=== PATIENT | female | born 1950 | race Caucasian/White ===

== ENCOUNTER 2023-01-20 06:26 | Inpatient (IN) | payer MEDICARE, OTHER ==
[2023-01-18 12:21] LABS: Basophils # (auto) 0 10 ^3/uL (0-0.2); Basophils % (auto) 0.6 % (0.0-2.0); Eosinophils # (auto) 0.2 10 ^3/uL (0-0.8); Eosinophils % (auto) 3.5 % (0.0-7.0); Hemoglobin 13.4 g/dL (12.2-16.2); Lymphocytes # (auto) 1.6 10 ^3/uL (0.4-5.4); Lymphocytes % (auto) 30.8 % (10.0-50.0); Mean Corpuscular Hemoglobin 30.3 pg (28.0-32.0); Mean Corpuscular Hgb Conc. 34.3 g/dL (32.0-36.0); Mean Corpuscular Volume 88.3 fL (80.0-100.0); Monocytes # (auto) 0.5 10 ^3/uL (0-1.3); Monocytes % (auto) 9.1 % (0.0-12.0); Neutrophils # (auto) 2.8 10 ^3/uL (1.6-8.6); Red Blood Cells 4.42 10^6/uL (4.0-5.20); Red Cell Distribution Width 13.6 % (11.8-14.3); White Blood Cell 5.1 10^3/uL (4.4-10.8)
[2023-01-18 12:44] LABS: INR 0.96 (0.9-1.15); Partial Thromboplastin Time 29.6 sec (24.6-33.4)
[2023-01-18 12:46] LABS: Urine Bacteria FEW /hpf (None Seen); Urine Blood Negative /uL (Negative); Urine WBC 2 /hpf (0 - 5)
[2023-01-18 12:48] LABS: Albumin 3.9 g/dL (3.4-5.0); Calcium 10.4 mg/dL (8.5-10.1); Potassium 4.6 mmol/L (3.5-5.1)
[2023-01-18 12:51] LABS: Bilirubin, Total 0.4 mg/dL (0.2-1.0); Total Protein 7.2 g/dL (6.4-8.2)
[~2023-01-20] VITALS: Ht 157.5 cm; Wt 95.4 kg
[~2023-01-20 06:26] MED LIST: ALPR1TAB2 PO; AMIT1TAB34 PO; ASPI1TAB20 PO; CYAN250L PO; HYDR1TAB97 PO; LEVO88CA3 PO; [UNRECOGNIZED DRUG - CODE] OR
[2023-01-20] MEDS ORDERED: ceFAZolin 1GM/50ML 100 ML IV ONE (06:39)
[2023-01-20] MEDS ORDERED: MIDAZOLAM HCL 2MG/2ML 2ml VIAL (1mg/ml) ONE (06:58)
[2023-01-20] MEDS ORDERED: fentaNYL CITRATE 100 MCG/2 ML VL ONE (06:58)
[2023-01-20] MEDS ORDERED: MEPERIDINE HCL (50 MG/ML) 1 ML VIAL ONE (06:58)
[2023-01-20] MEDS ORDERED: DexAMETHasone SOD PHOS 10MG/1ML VIAL INJ ONE (06:59)
[2023-01-20] MEDS ORDERED: ONDANSETRON HCL 4 MG/2 ML VIAL ONE (06:59)
[2023-01-20] MEDS ORDERED: SODIUM CHLORIDE LOCK 10 ML ONE (06:59)
[2023-01-20] MEDS ORDERED: PROPOFOL 10 MG/ML 20 ML IV ONE (06:59)
[2023-01-20] MEDS ORDERED: NEOSTIGMINE 1 MG/ML INJ (10mg/10ML VIAL) ONE (06:59)
[2023-01-20] MEDS ORDERED: LIDOCAINE W/ EPINEPHRINE 2% INJ 20ML VIAL ONE (07:00)
[2023-01-20] MEDS ORDERED: SUCCINYLCHOLINE CHLORIDE 20 MG/ML 10ML VIAL IV ONE (07:00)
[2023-01-20] MEDS ORDERED: ROCURONIUM 10MG/ML 10ML VIAL IV ONE (07:00)
[2023-01-20] MEDS ORDERED: MORPHINE SULFATE INJ 2 MG/ml SYRG IV PRN (07:15)
[2023-01-20] MEDS ORDERED: ONDANSETRON HCL 4 MG/2 ML VIAL IV PRN (07:15)
[2023-01-20] MEDS ORDERED: HYDROmorphone HCL 2 MG/ML VL/or syr IV PRN ×2 (07:15)
[2023-01-20] MEDS ORDERED: DOXAPRAM HCL 20 MG/ML 20ML VIAL INJ IV ONE (07:27)
[2023-01-20] MEDS ORDERED: POVIDONE IODINE 10 % TOPICAL OINT 30GM TOP ONE (08:23)
[2023-01-20] MEDS ORDERED: MORPHINE SULFATE INJ 2 MG/ml SYRG IV ONE ×2 (09:00→09:31)
[2023-01-20] MEDS: ALPRAZolam 0.5 MG TAB PO SCH ×2 (10:39→21:32)
[2023-01-20] MEDS: D5W/SOD CHL 0.45%/KCL 20MEQ 1,000 ML IV SCH ×2 (15:12→18:45)
[2023-01-20 15:18] VITALS: BP 133/61
[2023-01-20 15:21] VITALS: BP 115/61
[2023-01-20] MEDS: ceFAZolin 2 GM in D5W 5% 100 ML IV SCH ×2 (18:31→21:33)
[2023-01-20 22:00] VITALS: BP 140/70
[2023-01-21] MEDS: HYDROmorphone HCL 2 MG/ML VL/or syr IV PRN ×2 (00:08→10:07)
[2023-01-21] MEDS: D5W/SOD CHL 0.45%/KCL 20MEQ 1,000 ML IV SCH ×3 (01:46→13:11)
[2023-01-21 05:00] VITALS: BP 110/58
[2023-01-21] MEDS: ALPRAZolam 0.5 MG TAB PO SCH (06:43)
[2023-01-21 08:00] VITALS: BP 120/57
[2023-01-21 08:20] VITALS: BP 120/57
[2023-01-21] MEDS ORDERED: LEVOTHYROXINE SODIUM 88 MCG TAB PO ONE (12:00)
[2023-01-21] MEDS ORDERED: ACETAMINOPHEN 325 MG TAB PO PRN (12:15)
[2023-01-21 13:00] VITALS: BP 115/55
[2023-01-21] MEDS: ceFAZolin 2 GM in D5W 5% 100 ML IV SCH ×2 (14:00→21:32)
[2023-01-21 16:43] VITALS: BP 126/59
[2023-01-21] MEDS: ALPRAZolam 0.5 MG TAB PO PRN (21:32)
[2023-01-21] MEDS: HYDROcodone-ACET 5/325MG TAB PO PRN (21:32)
[2023-01-21 22:00] VITALS: BP 139/71
[2023-01-22] MEDS: D5W/SOD CHL 0.45%/KCL 20MEQ 1,000 ML IV SCH ×2 (01:20→14:37)
[2023-01-22 05:00] VITALS: BP 139/74
[2023-01-22] MEDS: ceFAZolin 2 GM in D5W 5% 100 ML IV SCH ×2 (06:26→14:00)
[2023-01-22] MEDS: HYDROcodone-ACET 5/325MG TAB PO PRN (06:28)
[2023-01-22] MEDS: ALPRAZolam 0.5 MG TAB PO PRN (06:31)
[2023-01-22 06:51] LABS: BUN/Creatinine Ratio 17.2; Calcium 9.7 mg/dL (8.5-10.1); Potassium 3.9 mmol/L (3.5-5.1)
[2023-01-22 06:59] LABS: Basophils # (auto) 0 10 ^3/uL (0-0.2); Basophils % (auto) 0.5 % (0.0-2.0); Eosinophils # (auto) 0.1 10 ^3/uL (0-0.8); Eosinophils % (auto) 1.2 % (0.0-7.0); Hematocrit 35.8 % (36.0-46.0); Hemoglobin 12.4 g/dL (12.2-16.2); Lymphocytes # (auto) 1.9 10 ^3/uL (0.4-5.4); Lymphocytes % (auto) 26.1 % (10.0-50.0); Mean Corpuscular Hemoglobin 30.5 pg (28.0-32.0); Mean Corpuscular Hgb Conc. 34.7 g/dL (32.0-36.0); Mean Corpuscular Volume 87.9 fL (80.0-100.0); Monocytes # (auto) 0.6 10 ^3/uL (0-1.3); Monocytes % (auto) 8.5 % (0.0-12.0); Neutrophils # (auto) 4.5 10 ^3/uL (1.6-8.6); Neutrophils % (auto) 63.7 % (37.0-80.0); Red Blood Cells 4.07 10^6/uL (4.0-5.20); Red Cell Distribution Width 13.6 % (11.8-14.3); White Blood Cell 7.1 10^3/uL (4.4-10.8)
[2023-01-22] MEDS ORDERED: LEVOTHYROXINE SODIUM 88 MCG TAB PO SCH (07:00)
[2023-01-22 08:00] VITALS: BP 131/71
[2023-01-22 08:55] VITALS: BP 131/71
[2023-01-22 12:44] VITALS: BP 119/65
[2023-01-22] MEDS ORDERED: diphenhdrAMINE HCL 25 MG CAP PO ONE (13:15)
[2023-01-22] MEDS ORDERED: CEPH-510 PO (16:07)
[2023-01-22] MEDS ORDERED: HYDR-4902 PO (16:07)
[2023-01-22 16:16] VITALS: BP 119/65
[2023-01-22 17:01] VITALS: BP 146/72
== END 2023-01-22 17:32 | disposition home or self-care (01) | DRG 355 ==
LOC: SUR 06:26 → OVERFLOW 10:47 → TELE-E-ADS 15:06 → WEST WING 18:14
PROVIDERS: ADMIT Surgery; ATTEND Internal Medicine
PROC: 0WQF0ZZ Repair Abdominal Wall, Open Approach (ICD-10-PCS; principal; 2023-01-20 07:38)
DX: K43.2 Incisional hernia without obstruction or gangrene (principal); E66.01 Morbid (severe) obesity due to excess calories; E03.9 Hypothyroidism, unspecified; F41.9 Anxiety disorder, unspecified; Z20.822 Contact with and (suspected) exposure to COVID-19; Z88.8 Allergy status to other drugs, medicaments and biological substances; Z91.012 Allergy to eggs; Z68.38 Body mass index [BMI] 38.0-38.9, adult
CPT/HCPCS: 36415; 80048; 80053; 81001; 84443; 85025; 85610; 85730; 86850; 86900; 86901; 88302; C1781; G0378; J0330; J0690; J1100; J2250; J2405; J2704; J7060

== ENCOUNTER → 2025-02-27 | Outpatient (CLI) | payer MEDICARE, BC ==
[~2025-02-27] MED LIST changes: +AMIT10TA12 PO; -AMIT1TAB34 PO; +CEPH-510 PO; +HYDR-4902 PO; -HYDR1TAB97 PO
[2025-02-27 12:41] LABS: Alanine Aminotransferase 29 U/L (7-40); Alkaline Phosphatase 76 U/L (46-116); Anion Gap 5 (5-15); BUN/Creatinine Ratio 15.4 (10.0-20.0); Blood Urea Nitrogen 14 mg/dL (9-23); Chloride 104 mmol/L (98-107); Glucose 100 mg/dL (74-106); Potassium 4.9 mmol/L (3.5-5.1); Sodium 141 mmol/L (136-145)
[2025-02-27 12:42] LABS: Total Protein 7.2 g/dL (5.7-8.2)
[2025-02-27 12:43] LABS: Albumin 4.6 g/dL (3.2-4.8); Aspartate Aminotransferase 23 U/L (13-40)
[2025-02-27 12:44] LABS: Bilirubin, Total 0.5 mg/dL (0.2-1.0)
[2025-02-27 12:58] LABS: Calcium 11.1 mg/dL (8.7-10.4); Carbon Dioxide 32 mmol/L (20-31)
== END | disposition home or self-care (01) ==
LOC: LAB 11:54
PROVIDERS: ATTEND Surgery
DX: K43.9 Ventral hernia without obstruction or gangrene (principal)
CPT/HCPCS: 36415; 80053

== ENCOUNTER 2025-05-07 06:15 | Inpatient (IN) | payer MEDICARE, BC ==
[2025-05-04 09:55] LABS: Urine Bacteria None Seen /hpf (None Seen)
[2025-05-04 10:00] LABS: Basophils # (auto) 0 10 ^3/uL (0-0.2); Basophils % (auto) 0.7 % (0.0-2.0); Eosinophils # (auto) 0.2 10 ^3/uL (0-0.8); Eosinophils % (auto) 3.2 % (0.0-7.0); Hematocrit 39.3 % (36.0-46.0); Hemoglobin 13.4 g/dL (12.2-16.2); Lymphocytes # (auto) 1.7 10 ^3/uL (0.4-5.4); Lymphocytes % (auto) 35.2 % (10.0-50.0); Mean Corpuscular Hgb Conc. 34.1 g/dL (32.0-36.0); Mean Corpuscular Volume 87.9 fL (80.0-100.0); Monocytes # (auto) 0.5 10 ^3/uL (0-1.3); Monocytes % (auto) 11.2 % (0.0-12.0); Neutrophils # (auto) 2.4 10 ^3/uL (1.6-8.6); Neutrophils % (auto) 49.7 % (37.0-80.0); Platelet Count (auto) 181 10^3/uL (140-450); Red Blood Cells 4.47 10^6/uL (4.0-5.20); Red Cell Distribution Width 13.5 % (11.8-14.3); White Blood Cell 4.8 10^3/uL (4.4-10.8)
[2025-05-04 10:22] LABS: Partial Thromboplastin Time 28.8 SEC (24.5-34.5); Prothrombin Time 10.6 sec (9.3-11.8)
[2025-05-04 11:24] LABS: Alanine Aminotransferase 24 U/L (7-40); Albumin 4.4 g/dL (3.2-4.8); Alkaline Phosphatase 79 U/L (46-116); Anion Gap 6 (5-15); Aspartate Aminotransferase 27 U/L (13-40); Blood Urea Nitrogen 20 mg/dL (9-23); Chloride 105 mmol/L (98-107); Potassium 4.6 mmol/L (3.5-5.1); Sodium 142 mmol/L (136-145)
[2025-05-04 11:25] LABS: Bilirubin, Total 0.4 mg/dL (0.2-1.0); Calcium 10.6 mg/dL (8.7-10.4); Carbon Dioxide 31 mmol/L (20-31); Glucose 71 mg/dL (74-106)
[2025-05-04 12:27] LABS: Urine Blood 1+ /uL (Negative); Urine Clarity Clear (Clear); Urine Color Yellow (Yellow); Urine Mucus FEW (None Seen); Urine Protein, UAD Negative (Negative); Urine Specific Gravity 1.026 (1.001-1.035); Urine Squamous Epithelial Cell FEW /hpf (<5); Urine Urobilinogen Normal (Negative); Urine WBC 3 /HPF (0-5); Urine pH 5.5 (5.0-9.0)
[~2025-05-07] VITALS: Ht 157.5 cm; Wt 81.1 kg
[~2025-05-07 06:15] MED LIST changes: +AMIT-400 PO; -AMIT10TA12 PO; -CEPH-510 PO; -CYAN250L PO; +HYDR-4798 PO; -HYDR-4902 PO; +LEVO125C3 PO; -LEVO88CA3 PO; -[UNRECOGNIZED DRUG - CODE] OR
[2025-05-07] MEDS: SUCCINYLCHOLINE CHLORIDE 20 MG/ML 10ML VIAL IV ONE (06:50)
[2025-05-07] MEDS ORDERED: fentaNYL CITRATE 100 MCG/2 ML VL ONE (06:53)
[2025-05-07] MEDS: ceFAZolin 2 GM/D5W50ml 50 ML IV ONE (07:04)
[2025-05-07] MEDS ORDERED: PHENYLEPHRINE HCL 10 MG/ML VL ONE (07:04)
[2025-05-07] MEDS ORDERED: PROPOFOL 10 MG/ML 20 ML IV ONE (07:05)
[2025-05-07] MEDS ORDERED: ROCURONIUM 10MG/ML 10ML VIAL IV ONE (07:41)
[2025-05-07] MEDS ORDERED: DexAMETHasone SOD PHOS 10MG/1ML VIAL INJ ONE (07:42)
[2025-05-07] MEDS ORDERED: ONDANSETRON HCL 4 MG/2 ML VIAL ONE (07:42)
[2025-05-07] MEDS ORDERED: HYDROmorphone HCL 2 MG/ML VL/or syr ONE (07:44)
[2025-05-07] MEDS ORDERED: ePHEDrine SULFATE 50 MG/ML AMP ONE (07:47)
[2025-05-07] MEDS: BUPIVACAINE 0.5% P/F INJ 10 ML VIAL ONE (08:15)
[2025-05-07] MEDS: LIDOCAINE W/ EPINEPHRINE 1% 20ML VIAL ONE (08:15)
[2025-05-07] MEDS: ceFAZolin 1GM VL ONE (08:16)
[2025-05-07] MEDS ORDERED: SUGAMMADEX 200mg/2ml Vial (100MG/ML) IV ONE (08:20)
[2025-05-07] MEDS: D5W/SOD CHL 0.45%/KCL 20MEQ 1,000 ML IV SCH (08:45)
[2025-05-07 08:47] VITALS: PULSE 98; RESP 16; O2SAT 93
[2025-05-07] MEDS ORDERED: MEPERIDINE HCL (25 MG/ML) 1ML VIAL IV PRN (09:00)
[2025-05-07] MEDS ORDERED: HYDROmorphone HCL 2 MG/ML VL/or syr IV PRN (09:00)
[2025-05-07] MEDS ORDERED: ACETAMINOPHEN IV 1000 MG/100ML (10MG/ML) IV PRN (09:00)
[2025-05-07] MEDS: ONDANSETRON HCL 4 MG/2 ML VIAL IV ONE (09:00)
--- NOTE | 2025-05-07 09:39 | DVHOP ---
DATE OF SURGERY: 05/07/2025 PREOPERATIVE DIAGNOSIS: Recurrent ventral incisional hernia. POSTOPERATIVE DIAGNOSIS: Recurrent ventral incisional hernia. SURGEON: Darius Johnson MD HOTEL OR MOTEL MANAGER: Anam Moya NP ANESTHESIA: General endotracheal SURGEON: Dr. Kebeed. PROCEDURE: Repair of recurrent ventral hernia with mesh. DESCRIPTION OF PROCEDURE: Under adequate anesthesia with the patient's skin prepped and draped, a vertical incision was made over the visible palpable herniation in the lower abdomen. Adipose tissue divided down onto the visible hernia sac, which was opened and digitally explored. It contained several loops of small bowel, which were reduced. The bowel and omentum were lysed and the bowel was reduced into the peritoneal cavity. The patient was placed in Trendelenburg position. The sac of the hernia was excised and submitted. A size 8 cm circular Ventralex mesh was then inserted into the defect and secured with 0 nonabsorbable sutures. The Ventralex mesh was irrigated with antibiotic solution on repeat occasions. Subsequently following adequate hemostasis, the patient's subcutaneous tissues and skin were approximated using Monocryl sutures, Dermabond glue, and Steri-Strips. The patient remained stable throughout the procedure, left the operating room following an accurate needle and sponge count, and her daughter, Renea Regan, was thoroughly informed by phone at [phone]. MD JOHN Dave/JAYNE/BRITANY TID: [id number] RECEIPT: [id number]
[2025-05-07] MEDS: PANTOPRAZOLE 40 MG/10 ML VIAL INJ IV SCH (10:00)
[2025-05-07] MEDS ORDERED: NITROGLYCERIN 0.4 MG SL TAB SL PRN (10:30)
[2025-05-07 13:00] VITALS: BP 118/58; PULSE 86; RESP 18; TEMP 97.5; O2SAT 94
[2025-05-07] MEDS: ceFAZolin 2 GM/D5W50ml 50 ML IV SCH (14:55)
[2025-05-07] MEDS ORDERED: LORazepam 2MG/ML-1ML VIAL IV PRN (15:30)
--- NOTE | 2025-05-07 15:30 | DVHHP2 ---
Review of Systems Allergies: Coded Allergies: Egg Phospholipids (Verified Allergy, Unknown, 01/20/23) Metoclopramide (Verified Allergy, Unknown, 01/20/23) Uncoded Allergies: EGGS,MILK (Allergy, Unknown, 01/20/23) Medications Current Medications Medications Dose Ordered Sig/Rasta Route Start Time Stop Time Status Last Admin Dose Admin Potassium Chloride/Dextrose/ Sod Cl 1,000 ml @ 120 mls/hr Q8H20M IV 05/07/25 08:45 05/07/25 08:45 120 MLS/HR Cefazolin Sodium/ Dextrose 50 ml @ 50 mls/hr Q8HR IV 05/07/25 14:00 05/07/25 14:55 50 MLS/HR Hydromorphone HCl 1 mg Q3HPRN PRN IV 05/07/25 08:45 Acetaminophen/ Codeine Phosphate 1 tab Q4HP PRN PO 05/07/25 08:45 Ondansetron HCl 4 mg Q4HPRN PRN IV 05/07/25 08:45 Pantoprazole Sodium 40 mg DAILY IV 05/07/25 10:00 05/07/25 10:00 40 MG Nitroglycerin 0.4 mg Q5MINP PRN SL 05/07/25 10:30 Exam Vital Signs Vital Signs Date Time Temp Pulse Resp B/P (MAP) Pulse Ox O2 Delivery O2 Flow Rate FiO2 05/07/25 13:00 97.5 86 18 118/58 (78) 94 97.5 05/07/25 11:54 Room Air* 0 21 Labs/Xrays Labs Test 05/04/25 09:33 Range/Units White Blood Count 4.8 4.4-10.8 10^3/uL Red Blood Count 4.47 4.0-5.20 10^6/uL Hemoglobin 13.4 12.2-16.2 g/dL Hematocrit 39.3 36.0-46.0 % Mean Corpuscular Volume 87.9 80.0-100.0 fL Mean Corpuscular Hemoglobin 30.0 28.0-32.0 pg Mean Corpuscular Hemoglobin Concent 34.1 32.0-36.0 g/dL Red Cell Distribution Width 13.5 11.8-14.3 % Platelet Count 181 140-450 10^3/uL Mean Platelet Volume 8.8 6.9-10.8 fL Neutrophils (%) (Auto) 49.7 37.0-80.0 % Lymphocytes (%) (Auto) 35.2 10.0-50.0 % Monocytes (%) (Auto) 11.2 0.0-12.0 % Eosinophils (%) (Auto) 3.2 0.0-7.0 % Basophils (%) (Auto) 0.7 0.0-2.0 % Neutrophils # (Auto) 2.4 1.6-8.6 10 ^3/uL Lymphocytes # (Auto) 1.7 0.4-5.4 10 ^3/uL Monocytes # (Auto) 0.5 0-1.3 10 ^3/uL Eosinophils # (Auto) 0.2 0-0.8 10 ^3/uL Basophils # (Auto) 0 0-0.2 10 ^3/uL Nucleated Red Blood Cells 0.0 % Prothrombin Time 10.6 9.3-11.8 sec Prothrombin Time INR 1.00 0.9-1.15 Activated Partial Thromboplast Time 28.8 24.5-34.5 SEC Urine Color Yellow Yellow Urine Clarity Clear Clear Urine pH 5.5 5.0-9.0 Urine Specific [place] 1.026 1.001-1.035 Urine Protein Negative Negative Urine Ketones Negative Negative Urine Blood 1+ H Negative /uL Urine Nitrite Negative Negative Urine Bilirubin Negative Negative Urine Urobilinogen Normal Negative mg/dL Urine Leukocyte Esterase Negative Negative /uL Urine RBC 2 0 - 4 /hpf Urine Microscopic WBC 3 0-5 /HPF Urine Squamous Epithelial Cells Few <5 /hpf Urine Bacteria None seen None Seen /hpf Urine Mucus Few None Seen Urine Glucose Normal Normal mg/dL Sodium Level 142 136-145 mmol/L Potassium Level 4.6 3.5-5.1 mmol/L Chloride Level 105 98-107 mmol/L Carbon Dioxide Level 31 20-31 mmol/L Anion Gap 6 5-15 Blood Urea Nitrogen 20 9-23 mg/dL Creatinine 0.77 0.550-1.02 mg/dL Glomerular Filtration Rate Calc 79 >90 mL/min BUN/Creatinine Ratio 26.0 H 10.0-20.0 Serum Glucose 71 L 74-106 mg/dL Calcium Level 10.6 H 8.7-10.4 mg/dL Total Bilirubin 0.4 0.2-1.0 mg/dL Aspartate Amino Transferase (AST) 27 13-40 U/L Alanine Aminotransferase (ALT) 24 7-40 U/L Alkaline Phosphatase 79 46-116 U/L Total Protein 7.0 5.7-8.2 g/dL Albumin 4.4 3.2-4.8 g/dL Assessment/Plan Assessment/Plan see dictated note Plan discussed with: Patient My Orders Orders - SB MCKEON MD Procedure Category Date Status Time Admit ADMIT 05/07/25 Transmitted 10:20 Oxygen By Nasal RT 05/07/25 Transmitted Cannula 10:20 Nitroglycerin PHA 05/07/25 In Process Sublingual (Ntrostat 10:30 Stat Ekg For Chest JUWAN 05/07/25 In Process Pain 10:20 Notify Md Of Changes [facility] 05/07/25 In Process From Base 10:20 Kiln Firer For [facility] 05/07/25 In Process 24 Hours 10:20 Emergency Dysrhythmia [facility] 05/07/25 In Process Protocol 10:20 Rhythm Strips Once [facility] 05/07/25 In Process Every Shift 10:20 Levothyroxine Tablet PHA 05/08/25 Verified (Synthroid Tablet) 06:00 Complete Blood Count LAB 05/08/25 Verified 06:00 Comprehensive LAB 05/08/25 Verified Metabolic Panel 06:00 Thyroid Stimulating LAB 05/08/25 Verified Hormone 05:00 Date of Service: May 07, 2025 Billing Provider: SB MCKEON MD Common Visit Codes: [id number] INP/OBS CARE (HIGH) Secondary Visit Codes: [id number] CARE PLAN 30 MINUTES SB MCKEON MD May 07, 2025 15:30
[2025-05-07] MEDS: ACETAMINOPHEN/CODEINE#3 (300/30mg) TAB PO PRN (16:33)
--- NOTE | 2025-05-07 16:47 | DVHHP ---
ADMIT DATE: 05/07/2025 HISTORY OF PRESENT ILLNESS: The patient is a 75-year-old lady with ventral hernia repair. The patient at this time denies any significant pain. No chest pain, no shortness of breath, no nausea or vomiting. REVIEW OF SYSTEMS: Review of rest systems are otherwise currently negative. PAST MEDICAL HISTORY: Significant for previous ventral hernia repairs as well as history of hypothyroidism and anxiety. MEDICATIONS: Xanax, Elavil, levothyroxine. ALLERGIES: TO REGLAN. SOCIAL HISTORY: Nonsmoker. No alcohol. Lives at home with her . FAMILY HISTORY: Negative. PHYSICAL EXAMINATION: GENERAL: The patient is awake and alert. VITAL SIGNS: Temperature 97.5, pulse 74 per minute, blood pressure 117/70. SHEENT: Unremarkable. NECK: No JVD. No pedal edema. LUNGS: Equal bilaterally. No added sounds. CARDIOVASCULAR: S1 and S2 is regular without murmurs. ABDOMEN: Soft. Bowel sounds are hypoactive. NEUROLOGIC: Nonfocal. MUSCULOSKELETAL: Normal. ASSESSMENT AND PLAN: * Hypothyroidism. Her TSH will be checked and she will continue on levothyroxine. * Anxiety for which she will be placed on p.r.n. Ativan. * Obesity. * Status post ventral hernia repair. The patient will be placed on IV fluids and pain medications. * Advanced care planning: The patient is a FULL CODE. Time spent was 18 minutes. MD FLORENCE Lima/TOYIN TID: [id number] RECEIPT: [id number]
[2025-05-07 17:11] VITALS: BP 114/61; PULSE 87; RESP 18; TEMP 97.8; O2SAT 92
[2025-05-07 20:00] VITALS: RESP 20; O2SAT 95
[2025-05-07 20:56] VITALS: BP 116/50; PULSE 91; RESP 18; TEMP 98; O2SAT 92
[2025-05-08] VITALS (7 sets, daily range): BP systolic 111–158; BP diastolic 54–86; PULSE 74–98; RESP 16–20; TEMP 97.6–98.3; O2SAT 93–98
[2025-05-08] MEDS: HYDROmorphone HCL 2 MG/ML VL/or syr IV PRN (02:46)
[2025-05-08] MEDS: LEVOTHYROXINE SODIUM 50 MCG TAB PO SCH (05:37)
[2025-05-08 08:01] LABS: Basophils # (auto) 0 10 ^3/uL (0-0.2); Basophils % (auto) 0.1 % (0.0-2.0); Eosinophils # (auto) 0 10 ^3/uL (0-0.8); Eosinophils % (auto) 0.1 % (0.0-7.0); Hematocrit 39.7 % (36.0-46.0); Hemoglobin 13.2 g/dL (12.2-16.2); Lymphocytes # (auto) 1.7 10 ^3/uL (0.4-5.4); Lymphocytes % (auto) 16.9 % (10.0-50.0); Mean Corpuscular Hemoglobin 29.3 pg (28.0-32.0); Mean Corpuscular Hgb Conc. 33.4 g/dL (32.0-36.0); Monocytes # (auto) 0.9 10 ^3/uL (0-1.3); Monocytes % (auto) 8.8 % (0.0-12.0); Neutrophils # (auto) 7.3 10 ^3/uL (1.6-8.6); Neutrophils % (auto) 74.1 % (37.0-80.0); Platelet Count (auto) 180 10^3/uL (140-450); Red Blood Cells 4.51 10^6/uL (4.0-5.20); Red Cell Distribution Width 13.3 % (11.8-14.3); White Blood Cell 9.8 10^3/uL (4.4-10.8)
[2025-05-08 08:08] LABS: Alanine Aminotransferase 18 U/L (7-40); Albumin 4.5 g/dL (3.2-4.8); Alkaline Phosphatase 86 U/L (46-116); Anion Gap 8 (5-15); Aspartate Aminotransferase 27 U/L (13-40); BUN/Creatinine Ratio 15.3 (10.0-20.0); Bilirubin, Total 0.5 mg/dL (0.2-1.0); Blood Urea Nitrogen 11 mg/dL (9-23); Carbon Dioxide 28 mmol/L (20-31); Glucose 79 mg/dL (74-106); Potassium 3.9 mmol/L (3.5-5.1); Sodium 143 mmol/L (136-145); Total Protein 7.1 g/dL (5.7-8.2)
[2025-05-08 08:18] LABS: Calcium 10.9 mg/dL (8.7-10.4); Chloride 107 mmol/L (98-107)
[2025-05-08] MEDS: ONDANSETRON HCL 4 MG/2 ML VIAL IV PRN (08:18)
--- NOTE | 2025-05-08 11:22 | DVHPN2 ---
Progress Note Date Seen: May 08, 2025 Medical Necessity Reason Pt with a Central, PICC or Fol: No Objective vital signs Vital Sign Date Time Temp Pulse Resp B/P (MAP) Pulse Ox O2 Delivery O2 Flow Rate FiO2 05/08/25 08:30 98.3 77 16 111/54 (73) 98 98.3 05/08/25 08:00 Room Air* 0 21 Total Intake and Output 05/07/25 05/07/25 05/08/25 15:00 23:00 07:00 Intake Total 1010 ml 1000 ml Balance 1010 ml 1000 ml medications Current Medications Medications Dose Ordered Sig/Rasta Route Start Time Stop Time Status Last Admin Dose Admin Potassium Chloride/Dextrose/ Sod Cl 1,000 ml @ 120 mls/hr Q8H20M IV 05/07/25 08:45 05/08/25 08:19 120 MLS/HR Cefazolin Sodium/ Dextrose 50 ml @ 50 mls/hr Q8HR IV 05/07/25 14:00 05/08/25 05:37 50 MLS/HR Hydromorphone HCl 1 mg Q3HPRN PRN IV 05/07/25 08:45 05/08/25 02:46 1 MG Acetaminophen/ Codeine Phosphate 1 tab Q4HP PRN PO 05/07/25 08:45 05/07/25 16:33 1 TAB Ondansetron HCl 4 mg Q4HPRN PRN IV 05/07/25 08:45 05/08/25 08:18 4 MG Pantoprazole Sodium 40 mg DAILY IV 05/07/25 10:00 05/08/25 08:18 40 MG Nitroglycerin 0.4 mg Q5MINP PRN SL 05/07/25 10:30 Levothyroxine Sodium 125 mcg QAM@0600 PO 05/08/25 06:00 05/08/25 05:37 125 MCG Lorazepam 0.5 mg Q8HP PRN IV 05/07/25 15:30 laboratory and microbiology Laboratory Tests 05/08/25 07:03 Test 05/08/25 07:03 Range/Units Serum Glucose 79 74-106 mg/dL Problem List/Assessment/Plan Problem List/Assessment/Plan 05/08/25 ambulated, dressing intact, abdomen non distended, appropriately tender. will allow po, home tomorrow Plan discussed with: Patient PRADEEP ESQUIVEL MD May 08, 2025 11:22
--- NOTE | 2025-05-08 13:03 | DVHPN2 ---
Progress Note Date Seen: May 08, 2025 Medical Necessity Reason Pt with a Central, PICC or Fol: No Subjective Patient reports: No new complaints Review of Systems: HEENT:Normal, CVS:Normal, RESPIRATORY:Normal, GI:Normal, :Normal, MSK:Normal, NEURO:Normal Objective vital signs Vital Sign Date Time Temp Pulse Resp B/P (MAP) Pulse Ox O2 Delivery O2 Flow Rate FiO2 05/08/25 08:30 98.3 77 16 111/54 (73) 98 98.3 05/08/25 08:00 Room Air* 0 21 Total Intake and Output 05/07/25 05/07/25 05/08/25 15:00 23:00 07:00 Intake Total 1010 ml 1000 ml Balance 1010 ml 1000 ml medications Current Medications Medications Dose Ordered Sig/Rasta Route Start Time Stop Time Status Last Admin Dose Admin Potassium Chloride/Dextrose/ Sod Cl 1,000 ml @ 120 mls/hr Q8H20M IV 05/07/25 08:45 05/08/25 08:19 120 MLS/HR Cefazolin Sodium/ Dextrose 50 ml @ 50 mls/hr Q8HR IV 05/07/25 14:00 05/08/25 05:37 50 MLS/HR Hydromorphone HCl 1 mg Q3HPRN PRN IV 05/07/25 08:45 05/08/25 02:46 1 MG Acetaminophen/ Codeine Phosphate 1 tab Q4HP PRN PO 05/07/25 08:45 05/07/25 16:33 1 TAB Ondansetron HCl 4 mg Q4HPRN PRN IV 05/07/25 08:45 05/08/25 08:18 4 MG Pantoprazole Sodium 40 mg DAILY IV 05/07/25 10:00 05/08/25 08:18 40 MG Nitroglycerin 0.4 mg Q5MINP PRN SL 05/07/25 10:30 Levothyroxine Sodium 125 mcg QAM@0600 PO 05/08/25 06:00 05/08/25 05:37 125 MCG Lorazepam 0.5 mg Q8HP PRN IV 05/07/25 15:30 Examination: GENERAL:Normal, HEENT:Normal, NECK:Normal, LUNGS:Normal, CVS:Normal, ABDOMEN:Normal, ABDOMEN:Abnormal (abd binder), MSK:Normal, SKIN:Normal, NEURO:Normal, :Normal laboratory and microbiology Laboratory Tests 05/08/25 07:03 Test 05/08/25 07:03 Range/Units Serum Glucose 79 74-106 mg/dL Problem List/Assessment/Plan Problem List/Assessment/Plan * Hypothyroidism. Her TSH will be checked and she will continue on levothyroxine. * Anxiety for which she will be placed on p.r.n. Ativan. * Obesity. * Status post ventral hernia repair. The patient will be placed on IV fluids and pain medications. * Advanced care planning: The patient is a FULL CODE - time spent 18 mins Plan discussed with: Patient My Orders My Orders Orders - SB MCKEON MD Procedure Category Date Status Time Levothyroxine Tablet PHA 05/08/25 In Process (Synthroid Tablet) 06:00 Lorazepam 2mg/Ml Inj PHA 05/07/25 In Process (Ativan Inj) 15:30 Date of Service: May 08, 2025 Billing Provider: SB MCKEON MD Common Visit Codes: [id number] INP/OBS CARE(HIGH) Secondary Visit Codes: [id number] CARE PLAN 30 MINUTES SB MCKEON MD May 08, 2025 13:03
[2025-05-09 01:00] VITALS: BP 134/72; PULSE 86; RESP 19; TEMP 98.1; O2SAT 94
[2025-05-09 05:00] VITALS: BP 131/70; PULSE 83; RESP 19; TEMP 98.1; O2SAT 95
[2025-05-09 09:00] VITALS: BP 125/68; PULSE 75; RESP 20; TEMP 98.3; O2SAT 96
[2025-05-09 13:00] VITALS: BP 137/72; PULSE 77; RESP 18; TEMP 98.4; O2SAT 93
--- NOTE | 2025-05-09 13:11 | DVHDS2 ---
Discharge Summary Date of Admission May 07, 2025 at 10:20 Date of Discharge: May 09, 2025 Labs/Diagnostic Data: Laboratory Results Test 05/08/25 07:03 05/04/25 09:33 White Blood Count 9.8 10^3/uL (4.4-10.8) Red Blood Count 4.51 10^6/uL (4.0-5.20) Hemoglobin 13.2 g/dL (12.2-16.2) Hematocrit 39.7 % (36.0-46.0) Mean Corpuscular Volume 88.0 fL (80.0-100.0) Mean Corpuscular Hemoglobin 29.3 pg (28.0-32.0) Mean Corpuscular Hemoglobin Concent 33.4 g/dL (32.0-36.0) Red Cell Distribution Width 13.3 % (11.8-14.3) Platelet Count 180 10^3/uL (140-450) Mean Platelet Volume 8.9 fL (6.9-10.8) Neutrophils (%) (Auto) 74.1 % (37.0-80.0) Lymphocytes (%) (Auto) 16.9 % (10.0-50.0) Monocytes (%) (Auto) 8.8 % (0.0-12.0) Eosinophils (%) (Auto) 0.1 % (0.0-7.0) Basophils (%) (Auto) 0.1 % (0.0-2.0) Neutrophils # (Auto) 7.3 10 ^3/uL (1.6-8.6) Lymphocytes # (Auto) 1.7 10 ^3/uL (0.4-5.4) Monocytes # (Auto) 0.9 10 ^3/uL (0-1.3) Eosinophils # (Auto) 0 10 ^3/uL (0-0.8) Basophils # (Auto) 0 10 ^3/uL (0-0.2) Nucleated Red Blood Cells 0.0 % Sodium Level 143 mmol/L (136-145) Potassium Level 3.9 mmol/L (3.5-5.1) Chloride Level 107 mmol/L (98-107) Carbon Dioxide Level 28 mmol/L (20-31) Anion Gap 8 (5-15) Blood Urea Nitrogen 11 mg/dL (9-23) Creatinine 0.72 mg/dL (0.550-1.02) Glomerular Filtration Rate Calc 86 mL/min (>90) BUN/Creatinine Ratio 15.3 (10.0-20.0) Serum Glucose 79 mg/dL (74-106) Calcium Level 10.9 mg/dL (8.7-10.4) Total Bilirubin 0.5 mg/dL (0.2-1.0) Aspartate Amino Transferase (AST) 27 U/L (13-40) Alanine Aminotransferase (ALT) 18 U/L (7-40) Alkaline Phosphatase 86 U/L (46-116) Total Protein 7.1 g/dL (5.7-8.2) Albumin 4.5 g/dL (3.2-4.8) Thyroid Stimulating Hormone (TSH) 0.13 uIU/mL (0.55-4.78) Prothrombin Time 10.6 sec (9.3-11.8) Prothrombin Time INR 1.00 (0.9-1.15) Activated Partial Thromboplast Time 28.8 SEC (24.5-34.5) Urine Color Yellow (Yellow) Urine Clarity Clear (Clear) Urine pH 5.5 (5.0-9.0) Urine Specific [place] 1.026 (1.001-1.035) Urine Protein Negative (Negative) Urine Ketones Negative (Negative) Urine Blood 1+ /uL (Negative) Urine Nitrite Negative (Negative) Urine Bilirubin Negative (Negative) Urine Urobilinogen Normal mg/dL (Negative) Urine Leukocyte Esterase Negative /uL (Negative) Urine RBC 2 /hpf (0 - 4) Urine Microscopic WBC 3 /HPF (0-5) Urine Squamous Epithelial Cells Few /hpf (<5) Urine Bacteria None seen /hpf (None Seen) Urine Mucus Few (None Seen) Urine Glucose Normal mg/dL (Normal) Other Laboratory Tests 05/08/25 07:03 Brief Hx & Hospital Course: see dictated note Condition at Discharge: Fair Final Diagnosis/Problems List ventral hernia repair Discharge Disposition: Home Discharge Instruct/Medications Diet: Cardiac 2g Na,low cholest Activity: No Restrictions, As Tolerated Follow Up/Referral: schedule appt with dr Johnson in 1 wk Medications: resume home meds Discharge Statement: "Patient was advised to return to the ER or call 911 if any headaches, dizziness, shortness of breath, chest pain, abdominal pain, bleeding, fevers, or worsening of medical condition. Patient was counseled about treatment plan, medications, possible side effects, patientverbalized understanding. All questions were answered to the best of my ability. This discharge took greater then 30 minutes in planning, reviewing documentation, counseling the patient, and discussing with other team members." ASSESSMENT ASSESSMENT Assessment ventral hernia repair Date of Service: May 09, 2025 Billing Provider: SB MCKEON MD Common Visit Codes: 94063-RPF/OBS DISCH DAY >30min SB MCKEON MD May 09, 2025 13:11
--- NOTE | 2025-05-09 13:23 | DVHDS ---
DATE OF DISCHARGE: 05/09/2025 HISTORY OF PRESENT ILLNESS: The patient is a 75-year-old lady who is admitted after she underwent surgery for a ventral hernia repair. The patient has had a history of hypothyroidism, anxiety, and previous ventral hernias. HOSPITAL COURSE: The patient has done well postoperatively. She is currently tolerating an oral diet and has had bowel activity. The patient now will be discharged home to resume her home medications and follow up with Dr. Johnson in the next 1 week. FINAL DIAGNOSES: * Hypothyroidism. * Obesity. * Anxiety. * Status post ventral hernia repair. Time spent in discharge planning and review of plan with the patient and nursing was 36 minutes. MD FLORENCE Lima/AMY TID: [id number] RECEIPT: [id number]
[2025-05-09 13:54] VITALS: BP 125/68; PULSE 70; RESP 20; TEMP 36.8; O2SAT 75
[2025-05-09 16:00] VITALS: BP 142/80; PULSE 83; RESP 18; TEMP 98.3; O2SAT 94
== END 2025-05-09 17:00 | disposition home or self-care (01) | DRG 355 ==
LOC: SUR 06:15 → OVERFLOW 10:20 → WEST WING 11:24
PROVIDERS: ADMIT Internal Medicine; ATTEND Internal Medicine
PROC: 0WUF0JZ Supplement Abdominal Wall with Synthetic Substitute, Open Approach (ICD-10-PCS; principal; 2025-05-07 07:31)
DX: K43.2 Incisional hernia without obstruction or gangrene (principal); E03.9 Hypothyroidism, unspecified; F41.9 Anxiety disorder, unspecified; E66.9 Obesity, unspecified; Z91.011 Allergy to milk products; Z88.8 Allergy status to other drugs, medicaments and biological substances; Z91.012 Allergy to eggs; Z68.39 Body mass index [BMI] 39.0-39.9, adult
CPT/HCPCS: 36415; 80053; 81001; 84443; 85025; 85610; 85730; 86850; 86900; 86901; 88302; G0378; J0330; J0690; J1100; J2405; J2470; J2704; J3490